=== PATIENT | female | born 2000 | race Caucasian/White ===

== ENCOUNTER 2020-07-11 07:58 | Emergency (ER) | payer SELFPAY ==
[~2020-07-11] VITALS: Ht 162.6 cm; Wt 59.6 kg
[2020-07-11 08:01] VITALS: BP 118/66
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
--- NOTE | 2020-07-11 08:19 | NUR ---
[facility]PA AT BEDSIDE FOR EVALUATION.
[2020-07-11] MEDS ORDERED: DEXAMETHASONE 4 MG/ML, 1ML PO ONE (08:30)
[2020-07-11] MEDS ORDERED: DEXAMETHASONE 4 MG/ML, 1ML ONE (08:33)
--- NOTE | 2020-07-11 10:08 | NUR ---
Patient given discharge instructions and work note and they have confirmed that they understand the instructions. Patient stable and ambulatory with steady gait from ED to private vehicle.
== END 2020-07-11 10:09 | disposition home or self-care (01) ==
LOC: ED 10:00
DX: J02.8 Acute pharyngitis due to other specified organisms (principal); R09.81 Nasal congestion; H92.01 Otalgia, right ear; F17.210 Nicotine dependence, cigarettes, uncomplicated
CPT/HCPCS: 87081; 87880; 99283; 99406; J1100

== ENCOUNTER 2020-08-13 08:57 | Emergency (ER) | payer SELFPAY ==
[~2020-08-13] VITALS: Ht 162.6 cm; Wt 59.1 kg
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
[2020-08-13] MEDS ORDERED: BIRTH CONTROL (09:34)
[2020-08-13 09:36] VITALS: BP 122/70
[2020-08-13] MEDS ORDERED: PHENAZOPYRIDINE 200 MG TABLET ONE (09:47)
[2020-08-13] MEDS ORDERED: PHENAZOPYRIDINE 200 MG TABLET PO ONE (10:00)
[2020-08-13 10:03] LABS: MICROSCOPIC INDICATED
== END 2020-08-13 10:42 | disposition home or self-care (01) ==
LOC: ED 09:15
DX: N30.01 Acute cystitis with hematuria (principal)
CPT/HCPCS: 81001; 87077; 87086; 87186; 99283